=== PATIENT | male | born 1960 | race Caucasian/White ===

== ENCOUNTER 2021-03-16 12:54 | Outpatient (CLI) | payer MEDICARE, MEDICAID, SELFPAY | END 2021-03-16 12:55 | disposition home or self-care (01) | LOC: ANHBWCAUD 12:57 | PROVIDERS: PCP Family Medicine; Visit Provider Otolaryngology | DX: H93.19 Tinnitus, unspecified ear (principal); H90.3 Sensorineural hearing loss, bilateral | CPT/HCPCS: 92557; 92567 ==

== ENCOUNTER 2021-03-26 12:56 | Outpatient (RCR) | payer MEDICARE, MEDICAID, SELFPAY | END 2021-06-24 23:59 | disposition home or self-care (01) | LOC: ANHBWCAUD 12:56 | PROVIDERS: PCP Family Medicine; Visit Provider Otolaryngology | DX: Z46.1 Encounter for fitting and adjustment of hearing aid (principal) | CPT/HCPCS: V5160; V5261; V5264 ==